=== PATIENT | male | born 1955 | race Caucasian/White ===

== ENCOUNTER → 2019-11-01 | Outpatient (CLI) | payer OTHER ==
[~2019-11-01] MED LIST: ASPIRIN325 PO; BYSTOLIC 5 MG5 M1 PO; EFFIENT10 MG PO; LISINOPRIL2.5 MG PO; NITROGLYCERIN0.4 MG SUBLING; ONE DAILY FOR1 EACH PO; PROTONIX40 M1 PO; VENLAFAXIN75 MG/1 T2 PO; VITAMINC500 PO; ZOCOR40 MG PO; ZYRTEC10 MG PO
== END ==
LOC: SJCVC 09:44
PROVIDERS: ATTEND Internal Medicine
DX: I49.9 Cardiac arrhythmia, unspecified (principal); I25.10 Atherosclerotic heart disease of native coronary artery without angina pectoris; I10 Essential (primary) hypertension; E78.5 Hyperlipidemia, unspecified; M25.562 Pain in left knee; I25.2 Old myocardial infarction; E66.9 Obesity, unspecified; Z79.82 Long term (current) use of aspirin; Z79.84 Long term (current) use of oral hypoglycemic drugs; Z79.899 Other long term (current) drug therapy

== ENCOUNTER → 2021-05-07 | Outpatient (CLI) | payer OTHER, MEDICARE | LOC: SJCVC 10:02 | PROVIDERS: ATTEND Internal Medicine | DX: I25.10 Atherosclerotic heart disease of native coronary artery without angina pectoris (principal); I10 Essential (primary) hypertension; E78.5 Hyperlipidemia, unspecified; F32.0 Major depressive disorder, single episode, mild; E66.09 Other obesity due to excess calories; Z79.82 Long term (current) use of aspirin; Z79.899 Other long term (current) drug therapy; Z72.89 Other problems related to lifestyle ==